=== PATIENT | male | born 1945 | race Caucasian/White ===

== ENCOUNTER 2017-07-28 22:01 | Emergency (ER) | payer MEDICARE, BC ==
[~2017-07-28] VITALS: Ht 170.2 cm; Wt 68.0 kg
[2017-07-28] MEDS ORDERED: TRAZODONE100 MG PO (22:17)
--- OUTSIDE RECORDS SUMMARY | 2017-07-28 22:17 | External Medical Summary Rpt ---
Author Author JACKIE Salvador, JACKIE Salvador Organization [employer] Address Unknown Phone Unavailable
--- OUTSIDE RECORDS SUMMARY | 2017-07-28 22:17 | External Medical Summary Rpt | CCD ---
Author Author [employer] Organization [employer] Address Unknown Phone Unavailable Purpose Continuity of Care Document - through 2016
--- OUTSIDE RECORDS SUMMARY | 2017-07-28 22:17 | External Medical Summary Rpt ---
Author Author JACKIE Salvador, JACKIE Salvador Organization [employer] Address Unknown Phone Unavailable
--- OUTSIDE RECORDS SUMMARY | 2017-07-28 22:17 | External Medical Summary Rpt | CCD ---
Demographics Preferred Language Mohawk Marital Status Unknown Christianity Affiliation Unknown Race Unknown Ethnic Group Unknown Author Author , JACKIE MEJIA Address Unknown Phone Immunization No patient found.
--- OUTSIDE RECORDS SUMMARY | 2017-07-28 22:17 | External Medical Summary Rpt | CCD ---
Demographics Preferred Language Danish Marital Status Unknown Anabaptist Affiliation Unknown Race Unknown Ethnic Group Unknown Author Author , JACKIE MEJIA Address Unknown Phone Immunization No patient found.
--- OUTSIDE RECORDS SUMMARY | 2017-07-28 22:17 | External Medical Summary Rpt | CCD ---
Author Author , RENUKA MEJIA Address Unknown Phone Purpose Continuity of Care Document - through 2016 Problems Code Diagnosis DOS Provider Status 244.9 268.9
--- OUTSIDE RECORDS SUMMARY | 2017-07-28 22:17 | External Medical Summary Rpt | CCD ---
Author Author , RENUKA MEJIA Address Unknown Phone [email or web address] Purpose Continuity of Care Document - through 2016 Problems Code Diagnosis DOS Provider Status 244.9 268.9
[2017-07-28 22:37] LABS: HEMOGLOBIN 15.4 g/dL (14.1-18.0); LYMPH # 2.1 K/mm3 (0.7-4.5); LYMPH % 18.5 % (10-50)
[2017-07-28 22:49] LABS: URINE BILIRUBIN - DIPSTICK NEGATIVE (NEG); URINE BLOOD NEGATIVE (NEG)
[2017-07-29] MEDS ORDERED: FLOMAX 0.4MG C0.4 MG PO (00:32)
--- NOTE | 2017-07-29 00:33 | Emergency Room Report ---
History of Present Illness Time Seen by [id number] Presenting Problem in Triage Pt arrived:Walked Presenting Problem:UNABLE TO URINATE OR CONSTIPATED X 3 DAYS. ABD SWOLLEN. 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 N Clinical Suspician of Infection? N Mental Status: 1 - Regular (Normal Baseline) Sepsis Risk: Have you (or family members/close friends) recently traveled outside the [place]? N If Yes, where/when: Have you had exposure to infectious disease within the past month? N TB? Other? Specify: Source patient, RN notes reviewed, family, RN/MD Exam Limitations no limitations Comment Patient presents with constipation for the past 3 days and acute urinary retention for the past 6 hours. Patient denies any previous similar complaints in the past. He is currently on a low-dose steroid for a chronic obstructive pulmonary disease exacerbation, prescribed by his nurse practitioner. Prior to my evaluation the nurse insert the Abdullahi catheter which drained 1200ml of clear urine, with patient feeling immediate relief. ALLERGIES Coded Allergies: No Known Allergies (11/12/16) Home Medications Reported Medications Trazodone Hcl (Trazodone HCl) 100 MG PO QHS History Medical History General CAD? No Angina: No HI: No Hypertension? No Hyperlipidemia? No CHF? No DVT? No PE? No COPD? No Asthma? No Anemia? No GERD? No Gastric ulcers? No GI Bleed? No Hernia? No Thyroid Problems? No Hypothyroidism? No CVA? No Seizures? No Diabetes? No Renal Insuffiency? No End Stage Renal Disease? No UTI? No Stones? No BPH? No GB Disease: No Nephritic Syndrome? No Asplenia? No Hepatitis? No Sickle Cell Disease? No Arthritis? Yes Migraines? No Cataracts? No Glaucoma? No MRSA? No HIV? No TB? No Anxiety? No Depression? No Cancer? No More? No Immunization Hx DT/Tetanus Unknown Surgical Hx Previous Surgery?Y BACK SURGERY GALLBLADDER SHUNT TO RIGHT UPPER ARM Social History Smoking Hx Smoker: Current Every Day Smoker Tobacco: Yes Type Cigarettes Alcohol Alcohol: Yes Review of Systems All Other Systems Reviewed and Negative Gastrointestinal abdominal pain, constipation Genitourinary dysuria (urinary retention), pain. Physical Exam Vital Signs Vital Signs Date Time Temp Pulse Resp B/P Pulse O2 O2 Flow FiO2 Ox Delivery Rate 07/29 0047 97.7 71 17 115/66 95 07/29 0039 97.7 71 17 115/66 95 07/28 2347 67 14 102/56 94 07/28 2302 68 18 120/62 95 07/28 2209 97.8 94 18 128/81 95 General Appearance normal appearance, WD/WN, no apparent distress Respiratory Status Yes: trachea midline, chest symmetrical, non tender chest. No: respiratory distress. Lung Sounds bilateral: normal breath sounds, lungs clear. 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 No Comment 0025-upon reevaluation patient appears medically stable, in no acute distress. He seems very possible the patient's current episode of urinary retention and constipation are secondary side effects due to patient's recent therapy with steroids. Instructed patient that he will be discharged home with the Abdullahi catheter, and that he is to follow-up with one of the local urologist within the next 2 days. If unable to see either of the urologists per instructions patient advised to return to this emergency room no later than Saturday to have the Abdullahi catheter removed. As far as her constipation it appears that patient has never had a colonoscopy, he was referred to follow-up with one of the local general surgeons for this matter. Patient advised to eat a high-fiber diet, drink prune juice, take a stool softener on a regular basis, such as Colace. He will be sent home with magnesium citrate and fleets enemas. Results/Orders Laboratory Tests 07/28/172247: Urine Color Cancelled, Urine Appearance Cancelled, Urine pH Cancelled, Ur Specific [place] Cancelled 07/28/172237: Urine Color YELLOW, Urine Appearance CLEAR, Urine pH 6.0, Ur Specific [place] 1.010, Urine Protein NEGATIVE, Urine Ketones NEGATIVE, Urine Blood NEGATIVE, Urine Nitrate NEGATIVE, Urine Bilirubin NEGATIVE, Urine Urobilinogen 0.2, Ur Leukocyte Esterase NEGATIVE, Amorphous Sediment TRACE, Urine Glucose NEGATIVE 07/28/172224: Lactic Acid 1.4 07/28/172224: Sodium 130 L, Potassium 3.8, Chloride 93 L, Carbon Dioxide 29, BUN 15, Creatinine 0.7 L, Estimated Creat Clear 92, Estimated GFR (MDRD) 111, Glucose 98, Calcium 8.1 L, Total Bilirubin 0.2, AST 17, ALT 24, Alkaline Phosphatase 66 , Total Protein 6.8, Albumin 3.4, Globulin 3.4 H, Albumin/Globulin Ratio 1.0 L , Amylase 64, Lipase 132, WBC 11.2 H, RBC 5.16, Hgb 15.4, Hct 46.5, MCV 90.2, RDW 12.5, Plt Count 282, MPV 7.1 L, Gran % 71.7, Gran # 8.1 H, Lymphocytes % 18.5, Monocytes % 6.2, Eosinophils % 2.9, Basophils % 0.6, Lymphocytes # 2.1, Monocytes # 0.7, Eosinophils # 0.3, Basophils # 0.1, PUBS MCHC 33.2, MCH 29.9 Current Medication Orders Sig/Muna Start time Last Medication Dose Route Stop Time Status Admin Tamsulosin HCl 0.4 MG ONCE ONE 07/29 0045 DC 07/29 PO 07/29 0046 0036 Tamsulosin HCl 0 .STK-MED ONE 07/295 DC PO Magnesium Citrate 0 .STK-MED ONE 07/292 DC PO Sodium Biphosphate/ 0 .STK-MED ONE 07/291 DC Sodium Phosphate MS Magnesium Citrate 1 BOT ONCE ONE 07/29 0030 DC 07/29 PO 07/29 003 0033 Sodium Biphosphate/ 133 ML ONCE ONE 07/290 DC 07/29 Sodium Phosphate MS 07/29 31 0033 Sodium Biphosphate/ 133 ML ONCE ONE 07/290 DC 07/29 Sodium Phosphate MS 07/29 31 0033 Sodium Chloride 10 ML PRN PRN 07/280 DCD IV 07/298 Orders Procedure Date/time Status DIET-NOTHING BY MOUTH 07/29 B Active URINARY CATHETER INSERT 07/28 2248 Active URINALYSIS/COMPLETE 07/[address] ABD & PELVIS W/O CONTRAST 07/[address] ABD/PELVIS REQ 07/28 2219 Active IV SALINE LOCK 07/28 2219 Active CULTURE, BLOOD 07/28 2219 Active LIPASE 07/28 2219 Complete LACTIC ACID 07/28 2219 Complete CBC WITH AUTO DIFF 07/28 2219 Complete CHEM 12 PROFILE 07/28 2219 Complete AMYLASE 07/28 2219 Complete XRAY/CT/US XRAY/CT/US CT abdomen, pelvis CT interpretation by discussed w/radiologist (without contrast) CT Results abnormal, see report, consistent with constipation Departure Departure Time of Disposition 27 Disposition DC Home or Self Care(routine) Clinical Impression Primary Impression: Urinary retention Secondary Impressions: Constipation Qualifiers: Constipation type: unspecified constipation type Qualified Code: K59.00 - Constipation, unspecified Condition STABLE Referrals Mukesh LINDSEY,Edgar Matos MD,Yang Noland MD,Raleigh TONEY MD,KAYLEE Ruiz Patient Instructions DI for Constipation, DI for Urinary Retention in Men Additional Instructions Please leave the Abdullahi catheter in for no more than 2-3 days, or till seen by one of the urologists listed below (Dr. Mayorga or Dr. Noland). If unable to see any of the urologists please return to the emergency room in order to have the Abdullahi catheter removed. Please eat a high fiber diet (eg: drink prune juice daily), take a stool softener (Colace). This follow-up with one of the local general surgeons (Dr. Matos or Dr. Toney) for additional outpatient workup, to include a colonoscopy. Discharge Counseling Counseled pt/family regarding diagnosis, test results, medications/RX, home care, follow up needs Comment Please leave the Abdullahi catheter in for no more than 2-3 days, or till seen by one of the urologists listed below (Dr. Mayorga or Dr. Noland). If unable to see any of the urologists please return to the emergency room in order to have the Abdullahi catheter removed. Please eat a high fiber diet (eg: drink prune juice daily), take a stool softener (Colace). This follow-up with one of the local general surgeons (Dr. Matos or Dr. Toney) for additional outpatient workup, to include a colonoscopy. Prescriptions Current Visit Scripts TAMSULOSIN HCL (Flomax 0.4MG) 0.4 MG PO QHS #30 CAP ED Critical Care Critical Care No at [id number]
--- NOTE | 2017-07-29 00:33 | Emergency Room Report ---
History of Present Illness Time Seen by [id number] Presenting Problem in Triage Pt arrived:Walked Presenting Problem:UNABLE TO URINATE OR CONSTIPATED X 3 DAYS. ABD SWOLLEN. 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 N Clinical Suspician of Infection? N Mental Status: 1 - Regular (Normal Baseline) Sepsis Risk: Have you (or family members/close friends) recently traveled outside the [place]? N If Yes, where/when: Have you had exposure to infectious disease within the past month? N TB? Other? Specify: Source patient, RN notes reviewed, family, RN/MD Exam Limitations no limitations Comment Patient presents with constipation for the past 3 days and acute urinary retention for the past 6 hours. Patient denies any previous similar complaints in the past. He is currently on a low-dose steroid for a chronic obstructive pulmonary disease exacerbation, prescribed by his nurse practitioner. Prior to my evaluation the nurse insert the Abdullahi catheter which drained 1200ml of clear urine, with patient feeling immediate relief. ALLERGIES Coded Allergies: No Known Allergies (11/12/16) Home Medications Reported Medications Trazodone Hcl (Trazodone HCl) 100 MG PO QHS History Medical History General CAD? No Angina: No VA: No Hypertension? No Hyperlipidemia? No CHF? No DVT? No PE? No COPD? No Asthma? No Anemia? No GERD? No Gastric ulcers? No GI Bleed? No Hernia? No Thyroid Problems? No Hypothyroidism? No CVA? No Seizures? No Diabetes? No Renal Insuffiency? No End Stage Renal Disease? No UTI? No Stones? No BPH? No GB Disease: No Nephritic Syndrome? No Asplenia? No Hepatitis? No Sickle Cell Disease? No Arthritis? Yes Migraines? No Cataracts? No Glaucoma? No MRSA? No HIV? No TB? No Anxiety? No Depression? No Cancer? No More? No Immunization Hx DT/Tetanus Unknown Surgical Hx Previous Surgery?Y BACK SURGERY GALLBLADDER SHUNT TO RIGHT UPPER ARM Social History Smoking Hx Smoker: Current Every Day Smoker Tobacco: Yes Type Cigarettes Alcohol Alcohol: Yes Review of Systems All Other Systems Reviewed and Negative Gastrointestinal abdominal pain, constipation Genitourinary dysuria (urinary retention), pain. Physical Exam Vital Signs Vital Signs Date Time Temp Pulse Resp B/P Pulse O2 O2 Flow FiO2 Ox Delivery Rate 07/29 0047 97.7 71 17 115/66 95 07/29 0039 97.7 71 17 115/66 95 07/28 2347 67 14 102/56 94 07/28 2302 68 18 120/62 95 07/28 2209 97.8 94 18 128/81 95 General Appearance normal appearance, WD/WN, no apparent distress Respiratory Status Yes: trachea midline, chest symmetrical, non tender chest. No: respiratory distress. Lung Sounds bilateral: normal breath sounds, lungs clear. Cardiovascular normal exam, regular rate/rhythm, no peripheral edema, no gallop, no JVD, no murmur, no rub, normal peripheral pulses Gastrointestinal normal bowel sounds, soft, no organomegaly, tenderness ( suprapubic) Extremities non-tender, normal range of motion, normal inspection Neurologic alert, flamer after lasting II-XII nml as tested, normal exam, oriented x 3 Mental status normal mood/affect Skin intact, normal color, warm/dry Medical Decision Making LABS/Meds/Orders Pt receiving controlled substance in ED? No Comment 0025-upon reevaluation patient appears medically stable, in no acute distress. He seems very possible the patient's current episode of urinary retention and constipation are secondary side effects due to patient's recent therapy with steroids. Instructed patient that he will be discharged home with the Abdullahi catheter, and that he is to follow-up with one of the local urologist within the next 2 days. If unable to see either of the urologists per instructions patient advised to return to this emergency room no later than Saturday to have the Abdullahi catheter removed. As far as her constipation it appears that patient has never had a colonoscopy, he was referred to follow-up with one of the local general surgeons for this matter. Patient advised to eat a high-fiber diet, drink prune juice, take a stool softener on a regular basis, such as Colace. He will be sent home with magnesium citrate and fleets enemas. Results/Orders Laboratory Tests 07/28/172247: Urine Color Cancelled, Urine Appearance Cancelled, Urine pH Cancelled, Ur Specific [place] Cancelled 07/28/172237: Urine Color YELLOW, Urine Appearance CLEAR, Urine pH 6.0, Ur Specific [place] 1.010, Urine Protein NEGATIVE, Urine Ketones NEGATIVE, Urine Blood NEGATIVE, Urine Nitrate NEGATIVE, Urine Bilirubin NEGATIVE, Urine Urobilinogen 0.2, Ur Leukocyte Esterase NEGATIVE, Amorphous Sediment TRACE, Urine Glucose NEGATIVE 07/28/172224: Lactic Acid 1.4 07/28/172224: Sodium 130 L, Potassium 3.8, Chloride 93 L, Carbon Dioxide 29, BUN 15, Creatinine 0.7 L, Estimated Creat Clear 92, Estimated GFR (MDRD) 111, Glucose 98, Calcium 8.1 L, Total Bilirubin 0.2, AST 17, ALT 24, Alkaline Phosphatase 66 , Total Protein 6.8, Albumin 3.4, Globulin 3.4 H, Albumin/Globulin Ratio 1.0 L , Amylase 64, Lipase 132, WBC 11.2 H, RBC 5.16, Hgb 15.4, Hct 46.5, MCV 90.2, RDW 12.5, Plt Count 282, MPV 7.1 L, Gran % 71.7, Gran # 8.1 H, Lymphocytes % 18.5, Monocytes % 6.2, Eosinophils % 2.9, Basophils % 0.6, Lymphocytes # 2.1, Monocytes # 0.7, Eosinophils # 0.3, Basophils # 0.1, PUBS MCHC 33.2, MCH 29.9 Current Medication Orders Sig/Muna Start time Last Medication Dose Route Stop Time Status Admin Tamsulosin HCl 0.4 MG ONCE ONE 07/29 0045 DC 07/29 PO 07/29 0046 0036 Tamsulosin HCl 0 .STK-MED ONE 07/295 DC PO Magnesium Citrate 0 .STK-MED ONE 07/292 DC PO Sodium Biphosphate/ 0 .STK-MED ONE 07/291 DC Sodium Phosphate [place] Magnesium Citrate 1 BOT ONCE ONE 07/29 0030 DC 07/29 PO 07/29 003 0033 Sodium Biphosphate/ 133 ML ONCE ONE 07/290 DC 07/29 Sodium Phosphate AK 07/29 31 0033 Sodium Biphosphate/ 133 ML ONCE ONE 07/290 DC 07/29 Sodium Phosphate [place] 07/29 31 0033 Sodium Chloride 10 ML PRN PRN 07/280 DCD IV 07/298 Orders Procedure Date/time Status DIET-NOTHING BY MOUTH 07/29 B Active URINARY CATHETER INSERT 07/28 2248 Active URINALYSIS/COMPLETE 07/[address] ABD & PELVIS W/O CONTRAST 07/[address] ABD/PELVIS REQ 07/28 2219 Active IV SALINE LOCK 07/28 2219 Active CULTURE, BLOOD 07/28 2219 Active LIPASE 07/28 2219 Complete LACTIC ACID 07/28 2219 Complete CBC WITH AUTO DIFF 07/28 2219 Complete CHEM 12 PROFILE 07/28 2219 Complete AMYLASE 07/28 2219 Complete XRAY/CT/US XRAY/CT/US CT abdomen, pelvis CT interpretation by discussed w/radiologist (without contrast) CT Results abnormal, see report, consistent with constipation Departure Departure Time of Disposition 27 Disposition DC Home or Self Care(routine) Clinical Impression Primary Impression: Urinary retention Secondary Impressions: Constipation Qualifiers: Constipation type: unspecified constipation type Qualified Code: K59.00 - Constipation, unspecified Condition STABLE Referrals Mukesh LINDSEY,Edgar Matos MD,Yang Noland MD,Raleigh TONEY MD,KAYLEE Ruiz Patient Instructions DI for Constipation, DI for Urinary Retention in Men Additional Instructions Please leave the Abdullahi catheter in for no more than 2-3 days, or till seen by one of the urologists listed below (Dr. Mayorga or Dr. Noland). If unable to see any of the urologists please return to the emergency room in order to have the Abdullahi catheter removed. Please eat a high fiber diet (eg: drink prune juice daily), take a stool softener (Colace). This follow-up with one of the local general surgeons (Dr. Matos or Dr. Toney) for additional outpatient workup, to include a colonoscopy. Discharge Counseling Counseled pt/family regarding diagnosis, test results, medications/RX, home care, follow up needs Comment Please leave the Abdullahi catheter in for no more than 2-3 days, or till seen by one of the urologists listed below (Dr. Mayorga or Dr. Noland). If unable to see any of the urologists please return to the emergency room in order to have the Abdullahi catheter removed. Please eat a high fiber diet (eg: drink prune juice daily), take a stool softener (Colace). This follow-up with one of the local general surgeons (Dr. Matos or Dr. Toney) for additional outpatient workup, to include a colonoscopy. Prescriptions Current Visit Scripts TAMSULOSIN HCL (Flomax 0.4MG) 0.4 MG PO QHS #30 CAP ED Critical Care Critical Care No at 0729
[2017-07-29 00:47] VITALS: BP 115/66
--- NOTE | 2017-07-29 10:00 | RADIOLOGY REPORT PS360 ---
CT ABD CT ABD PELVIS W/O CONTRAST Ordering Physician: Harjinder Friedman MD Patient Age: 71 years: Male HISTORY: DISTENTION OF ABDOMEN TECHNIQUE: Helical CT scanning performed at of pelvis with no oral nor IV contrast utilized. Sagittal coronal reconstructions on CT workstation and performed. COMPARISON : Previous CT abdomen pelvis July 2010 FINDINGS Rectum is prominently distended by stool reflect a developing fecal impaction. Stool filled rectum measures over 8 cm transverse X just less than 10 cm AP.. There may be some minor wall thickening anteriorly at this stool filled rectum. No perirectal findings. The stool diminishes towards the sigmoid colon gas is seen at the redundant sigmoid colon. There is also prominent stool although less pronounced at the right and transverse colon. No bowel dilatation. Lung bases. Hyperexpanded but clear heart normal size The lack of oral and IV contrast decreases to the in evaluating abdomen. The liver, spleen, pancreas unremarkable on this noncontrast study. Kidneys: There is a benign left renal cyst measuring 3.2 cm maximally. There is shown slight progression since previous 2009 exam benign cystic density in character. It can be followed. Right kidney unremarkable. No urinary tract calculi and obstruction either kidney. Aorta mildly calcified with mild dilatation. It measures up to just less than 2.8 cm AP diameter. . Pelvis : urinary bladder. Borderline to mild wall thickening. Abdullahi catheter is in place. Prostate not enlarged but with central calcification.... Appendix visualized & normal. This contradiction history of appendectomy. Terminal ileum unremarkable Small bowel. Generous fluid throughout small bowel. No dilatation nor obstruction Degenerative changes spine with multilevel degenerative disc space narrowing and prominent posterior element hypertrophy. These features yield foraminal encroachment and narrowing bilaterally at L5/S1.Bilateral pars defect at L5. As well as spinal stenosis noted at L2/3 due to the stenosis & slight retrolisthesis of L2 on L3.. Multi other levels of disc bulge and spondylosis lower T-spine as well IMPRESSION. No acute findings abdomen pelvis No urinary tract calculi nor obstruction. Appendix normal. Large amount of stool distends the rectum up to nearly 10 cm AP X 8 cm transverse.. Prominent stool the right and transverse colon. No bowel wall dilatation or obstruction. Generous fluid throughout small bowel, upper normal caliber. Could reflect mild ileus . Mild dilated abdominal aorta 2.8 cm diameter. Warrants ongoing ultrasound survey follow-up in 12 months Prominent Degenerative changes spine
== END 2017-07-29 00:48 | disposition home or self-care (01) ==
LOC: ER 22:01
PROVIDERS: Emergency Medicine
DX: K59.00 Constipation, unspecified (principal); R33.9 Retention of urine, unspecified; J44.9 Chronic obstructive pulmonary disease, unspecified; F17.210 Nicotine dependence, cigarettes, uncomplicated

== ENCOUNTER 2017-08-05 10:02 | Day surgery (SDC) | payer MEDICARE, BC ==
[~2017-08-05 10:02] MED LIST: FLOMAX 0.4MG C0.4 MG PO; TRAZODONE100 MG PO
--- NOTE | 2017-08-05 11:57 | Operative Note ---
Colonoscopy ([facility]) Procedure date: 08/05/17 Date of : 43 Procedure:Colonoscopy Colonoscopy with cold snare polypectomy Indications: Mr. Rivera is a 71-year-old gentleman who is here for screening colonoscopy. He does state that last Saturday evening at 10:30 PM (8 days ago), he went to the emergency department with bowel and bladder blockage and was given a urinary catheter and a bottle of mag citrate. He did improve. He reports no abdominal pain, weight loss, change in his bowel habits or rectal bleeding. He reports no family history of colon cancer. This is his first colonoscopy. Performing Provider: Isabel Haque MD Referrring Provider: Cesar Sánchez M.D. Sedation: Fentanyl 200 mg IV/Versed 9 mg IV Procedure: Prior to the procedure, a history and physical exam was performed, and patient medications and allergies were reviewed. The risks and benefits of the procedure and the sedation options and risks were discussed with the patient. All questions were answered and informed consent was obtained. Patient identification and proposed procedure were verified by the physician and the nurse. The patient was placed in a left lateral decubitus position. Throughout the procedure, the patient's blood pressure, pulse, and oxygen saturations were monitored continuously. Findings: On digital rectal examination there was normal rectal tone. There were no external hemorrhoids. The prostate was 2+, smooth, soft, symmetric without nodules. The colonoscope was introduced through the anal canal to the rectum and advanced to the cecum. The ileocecal valve and appendiceal orifice were identified. The scope was advanced a short distance into the ileum which appeared grossly normal. The scope was then withdrawn into the colon. There were 2 colon polyps identified in the ascending 1 and descending 1. These ranged in size from 4-6 mm and were all removed via cold snare polypectomy. There were scattered diverticuli throughout the descending and sigmoid colon (LEFT colon). The rectum itself was normal. Upon retroflexion within the rectum there were grade 1 internal hemorrhoids. Impressions: 1. Diminutive colonic polyps 2 2. Left-sided diverticulosis 3. Grade 1 internal hemorrhoids Recommendations: I will follow-up the polyp histology and recommend repeat screening/surveillance colonoscopy again in 5-10 years based on the polyp histology. I would recommend fiber supplementation on a long-term daily maintenance basis. Complications: None EBL (ml): 0 at 1158
[2017-08-05 15:59] VITALS: BP 99/58
== END 2017-08-05 12:58 | disposition home or self-care (01) ==
LOC: SDC 10:02
PROVIDERS: Internal Medicine Gastroenterology
PROC: 0DBM8ZX Excision of Descending Colon, Via Natural or Artificial Opening Endoscopic, Diagnostic (ICD-10-PCS; 2017-08-05)
PROC: 0DBK8ZX Excision of Ascending Colon, Via Natural or Artificial Opening Endoscopic, Diagnostic (ICD-10-PCS; principal; 2017-08-05 11:30)
DX: Z12.11 Encounter for screening for malignant neoplasm of colon (principal); D12.2 Benign neoplasm of ascending colon; K63.5 Polyp of colon; K57.30 Diverticulosis of large intestine without perforation or abscess without bleeding; K64.0 First degree hemorrhoids